=== PATIENT | male | born 1945 | race Caucasian/White ===

== ENCOUNTER 2023-02-03 14:59 | Inpatient (IN) | payer MEDICARE, SELFPAY ==
--- NOTE | 2023-02-03 | FLU_PTH ---
PATIENT: WINNIE WARREN LOC: [facility] U#:[id number] AGE/SX: 77/M ROOM: [facility] RE02/03/[address]: Dr. Juice Berger MD : [id number] BED: 1 DIS: 02/06/2023 SPEC #: [id number] RECD: 02/03/23 16:00 STATUS: MARGARET REJuan Diego #: [id number] TEE: 02/03/23 00:[address]: Du Madrigal DEPT: CYTOLOGY RECD BY: Foreign Briscoe ENTERED: 02/04/23 09:23 SP TYPE: Fluid OTHR DR: MD Dr. Kyrie Underwood MD Dr. Robert Leininger, MD Tissues: Cerebrospinal Fluid Procedures: Special Stain Group II Surgery Specimen Level IV Cytospin Fluid HEADER OPERATION: Not noted PRE-OP DIAGNOSIS: Neurosyphilis TISSUE SUBMITTED: Cerebrospinal fluid for cytology DIAGNOSIS CYTOLOGY Cerebrospinal fluid for cytology (cytospin): Negative for malignant cells. See comment. SJ:steffi 02/04/2023 COMMENT Lymphocytes and monocytes are noted. Clinical correlation and appropriate follow up are necessary. CYTOLOGY STUDY Slides are reviewed. CYTOLOGY GROSS Received is 1 ml of clear colorless fluid labeled with the patient's name and and designated per the requisition as CSF. Submitted for cytology preparation including cell block. / steffi 02/04/2023 TC:5 CPT: 73165, 16852
[2023-02-03 15:01] VITALS: BP 121/77; PULSE 123; RESP 18; TEMP 36.6; O2SAT 95; BMI 22.6
--- NOTE | 2023-02-03 16:05 | EX.ED.DYSGE1 ---
HPI History of Present Illness Chief Complaint: General Illness Informant: patient Narrative Narrative: Patient presents secondary to concern for neurosyphilis. Patient had recently had some urinary symptoms that started about 4 5 months ago. He was sent to urologist and was given treatment for UTI as well as BPH. Patient states shortly after this he developed some vision problems with his right eye. He was seen by his local spring repairer helper hand who then sent him to a specialist in [place]. Eye exam there did not reveal any specific findings, however work-up continued with infectious disease and patient was found to have an elevated syphilis titer. Patient was sent to the ER today by Dr. Tang for a lumbar puncture. [facility] Medical History (Updated 02/03/23 @ 18:[address] Cara Krishnamurthy MD) BPH (benign prostatic hyperplasia) Allergy/AdvReac Type Severity Reaction Status Date / Time No Known Allergies Allergy Verified 02/03/23 15:01 Social History Smoking Status: Never smoker ROS ROS ED Constitutional Constitutional ED: Denies chills or fever(s) Eyes Eyes: Reports change in vision right ENT ENT ED: Denies rhinorrhea or sore throat Cardiovascular Cardiovascular: Denies chest pain or palpitations Respiratory/Chest Respiratory/Chest: Denies cough or dyspnea Gastrointestinal Gastrointestinal: Denies abdominal pain, nausea or vomiting Genitourinary Genitourinary ED: Denies difficulty urinating or dysuria Musculoskeletal Musculoskeletal: Denies back pain or extremity pain Integumentary Denies Abrasions or rash Neurologic Neurologic: Denies headache(s) or weakness Psychiatric Psychiatric: Denies anxiety or depression Allergic/Immunologic Allergic/Immunologic ED: Denies lip swelling or urticaria EXAM Physical Exam Const Vital Signs: 02/03/23 15:01 02/03/23 17:00 Temperature 98 F Temperature Source Temporal Pulse Rate 123 H Respiratory Rate 18 16 Blood Pressure 121/77 H Blood Pressure Mean 91 Pulse Ox 95 Oxygen Delivery Method Room Air Positive well nourished and well developed General Appearance ED: well developed HEENT Reports normocephalic and head/scalp atraumatic Eyes EOMs intact bilaterally Neck supple Chest Wall inspection of chest normal and palpation of chest normal Resp normal respiratory effort and clear to auscultation bilaterally Cardio regular rate and regular rhythm GI normal to inspection, nondistended, normoactive bowel sounds Palpation: soft Extremity normal to inspection Neuro oriented x3 and no sensory deficits noted Sensorium / Orientation: alert Motor Exam: strength 5/5 throughout Psych mental status grossly normal Skin Skin Narrative: Flat erythematous patchy rash noted over the trunk as well as upper extremities. MDM MDM MDM Narrative Medical decision making narrative: Labwork obtained to evaluate for leukocytosis, anemia, and electrolyte derangement. HIV test also ordered per Dr. Tang's request along with syphilis antibody testing. CFS orders placed. Lab Data Attestation: I reviewed the patient's lab results. Labs: Laboratory Results - last 24 hr 02/03/23 02/03/23 02/03/23 16:40 16:40 16:40 WBC 4.6 RBC 3.43 L Hgb 9.1 L Hct 28.8 L MCV 84.0 MCH 26.5 L MCHC 31.6 L RDW Std Deviation 48.6 H RDW Coeff of Toya 15.9 H Plt Count 227 MPV 8.6 Immature Gran % (Auto) 0.400 Neut % (Auto) 54.1 Lymph % (Auto) 31.5 [place] % (Auto) 9.3 Eos % (Auto) 4.3 Baso % (Auto) 0.4 Absolute Neuts (auto) 2.5 Absolute Lymphs (auto) 1.46 Nucleated RBC % 0 PT 13.9 INR 1.1 APTT 28.6 Sodium Potassium Chloride Carbon Dioxide Anion Gap BUN Creatinine Estim Creat Clear Calc Est GFR (MDRD) Af Amer Est GFR (MDRD) Non-Af BUN/Creatinine Ratio Glucose Calcium Fld Polynuclear WBCs # Fld Polynuclear WBCs % Fluid Mononuclear WBCs Fld Mononuclear WBCs % CSF Appearance CSF Color CSF WBC CSF RBC CSF Cell Count Tube # CSF Total Cell Counted CSF Neutrophils CSF Lymphocytes CSF Monocytes CSF Comment CSF Glucose CSF Total Protein HIV 1&2 Antibody Non-Reactive 02/03/23 02/03/23 02/03/23 16:40 16:58 16:58 WBC RBC Hgb Hct MCV MCH MCHC RDW Std Deviation RDW Coeff of Toya Plt Count MPV Immature Gran % (Auto) Neut % (Auto) Lymph % (Auto) [place] % (Auto) Eos % (Auto) Baso % (Auto) Absolute Neuts (auto) Absolute Lymphs (auto) Nucleated RBC % PT INR APTT Sodium 136 Cancelled Potassium 4.4 Cancelled Chloride 104 Cancelled Carbon Dioxide 26.0 Cancelled Anion Gap 6 Cancelled BUN 15 Cancelled Creatinine 0.67 L Cancelled Estim Creat Clear Calc 58.04 Est GFR (MDRD) Af Amer 147 Cancelled Est GFR (MDRD) Non-Af 121 Cancelled BUN/Creatinine Ratio 22.3 H Cancelled Glucose 91 Cancelled Calcium 8.7 Cancelled Fld Polynuclear WBCs # 0.002 Fld Polynuclear WBCs % 6.7 Fluid Mononuclear WBCs 0.028 Fld Mononuclear WBCs % 93.3 CSF Appearance CLEAR CSF Color COLORLESS CSF WBC 0.030 H CSF RBC 0 CSF Cell Count Tube # 4 CSF Total Cell Counted 0.031 CSF Neutrophils 13 H CSF Lymphocytes 77 CSF Monocytes 10 L CSF Comment May follow CSF Glucose 50 CSF Total Protein 74.0 H HIV 1&2 Antibody Treatment and Re-Evaluation :: Procedure note: Patient consented for lumbar puncture at bedside. Total of 5 cc 1% lidocaine are infused over to lower lumbar sites. Spinal needle placed without difficulty with return of clear CSF. Fluid collected in 4 tubes and sent to lab for testing. Laboratory evaluation reveals a normal white count at 4.6 with a hemoglobin of 9.1. Do not have prior values to compare to. Coags are unremarkable. HIV antibody testing is nonreactive. Chemistry studies are unremarkable. CFS testing reports 30 white cells with 13% neutrophils. Protein is elevated at 74 and glucose is 50. In light of this patient is ordered IV penicillin G and will be admitted to hospital while awaiting further viral studies. I will speak with the hospitalist. Discharge Plan Triage Chief Complaint: General Illness ED Provider: Cara Krishnamurthy Dx/Rx/DC Orders Clinical Impression: Vision changes, Abnormal cerebrospinal fluid Primary Care Provider: Lina Cantrell Referrals: Lina Cantrell MD [Primary Care Provider] - Disposition Disposition: Acute Care Hospital [facility]
[2023-02-03 17:00] VITALS: RESP 16
[2023-02-03 17:04] LABS: Absolute Lymphocyte Count 1.46 X10^3/uL (0.83-4.51); Absolute Neutrophil Count 2.5 X10^3/uL (2.0-7.7); Basophil# 0.02 X10^3/uL; Basophil% 0.4 % (0-1); Eosinophils% 4.3 % (0-5); Hematocrit 28.8 % (40-54); Hemoglobin 9.1 g/dL (13.0-16.5); Lymphocyte # 1.46 X10^3/ul (0.83-4.51); Lymphocyte % 31.5 % (19-41); Mean Corp Hgb Conc 31.6 g/dL (32-36); Mean Corpuscular Hgb 26.5 pg (27.0-32.0); Mean Platelet Vol. 8.6 fl (6.2-12.0); Monocyte# 0.43 X10^3/uL; Monocyte% 9.3 % (0-10); NRBC Flagged by Analyzer 0 % (0-5); Neutrophil % 54.1 % (47-70); Platelet Count 227 K/mm3 (150-450); RBC Distribution Width CV 15.9 % (11.6-14.6); RBC Distribution Width SD 48.6 fl (35.1-43.9); Red Blood Count 3.43 M/mm3 (4.6-6.2); White Blood Count 4.6 K/mm3 (4.4-11.0)
[2023-02-03] MEDS: 0.9% Normal Saline 1,000 ML 999 ML IV (17:09)
[2023-02-03 17:10] LABS: Cytology, Body Fluid / CSF SEE PATHOLOGY REPORT
[2023-02-03 17:19] LABS: International Normalized Ratio 1.1; Prothrombin Time (Protime)PT. 13.9 SECONDS (11.7-14.9)
[2023-02-03 17:20] LABS: Body Fluid Mononuclear WBC # 0.028 10^3/uL; Body Fluid Mononuclear WBC % 93.3 %; Body Fluid Polynuclear WBC # 0.002 10^3/uL; Body Fluid Polynuclear WBC % 6.7 %; Total Cell Count CSF 0.031 10^3/uL
[2023-02-03 17:20] LABS: Partial Thromboplast Time 28.6 Seconds (24.1-36.2)
[2023-02-03 17:40] LABS: Anion Gap 6 (5-15); BUN 15 mg/dL (7-18); BUN/Creat Ratio 22.3 RATIO (10-20); Calcium,Total 8.7 mg/dL (8.5-10.1); Chloride 104 mmol/L (98-107); Creatinine, Serum 0.67 mg/dL (0.70-1.30); EST Glomerular Filtration Rate 121 mL/min (>60); Est Glom Filt Rate - Afr Amer 147 mL/min (>60); Estimated Creatinine Clearance 58.04 ml/min; Glucose 91 mg/dL (74-106); Potassium 4.4 mmol/L (3.5-5.1); Sodium Level 136 mmol/L (136-145)
[2023-02-03 17:51] LABS: Appearance CSF (character) CLEAR (Clear); Auto B Fluid Analyzer BKGD Ct COUNTS W/IN LIMITS (W/IN LIMITS); CSF Color COLORLESS (Colorless); Tested Tube # 4
[2023-02-03 17:52] LABS: RBC Count, Spinal Fluid 0 /mm-3 (None seen)
[2023-02-03 18:05] LABS: HIV - WCH Non-Reactive (Nonreactive)
[2023-02-03 18:17] LABS: Glucose Spinal Fluid 50 mg/dL (40-75)
[2023-02-03 18:24] LABS: Body Fluid QC Type(s) BF1Q,BF2Q; Lymphocytes,CSF 77 % (40 - 80); Monocytes,CSF 10 % (15 - 45); Neutrophils,CSF 13 % (0 - 6)
[2023-02-03 19:12] VITALS: BP 111/69; PULSE 105; RESP 14; TEMP 37.2; O2SAT 95
[2023-02-03 21:00] VITALS: BP 129/80; RESP 18; O2SAT 94
[2023-02-03 21:28] VITALS: BMI 22.1
--- NOTE | 2023-02-03 21:34 | HP.PCM.HOS_ITS ---
HPI - General General Date of Admission: 02/03/23 Date of Service: 02/03/23 Chief Complaint: eval neurosyphilis. HPI Narrative WINNIE WARREN, is a 77 M who presents per advice of ID for eval via LP and possible tx of neurosyphilis. Patient states shortly after this he developed some vision problems with his right eye.? He was seen by his local hot top liner who then sent him to a specialist in [place].? Eye exam there did not reveal retinal problem. History of cataract surgery bilateral in 2014. Patient saw infectious disease and patient was found to have an elevated syphilis titer & was referred here. Has poor vision in right eye. Has a rash over trunk and abdomen for several weeks.Does not complain of itching. Was also seen by urology for ongoing urinary frequency at night, started on Flomax. [facility] Medical History (Updated 02/03/23 @ 21:[address] Kyrie Rico MD) BPH (benign prostatic hyperplasia) Home Medications prednisolone acetate 1 % eye drops,suspension 1 drp RIGHT EYE 4X/DAY 02/03/23 [History Last Taken 02/03/23] tamsulosin 0.4 mg capsule 0.4 mg PO DAILY PROSTATE 02/03/23 [History Last Taken 02/03/23] Allergy/AdvReac Type Severity Reaction Status Date / Time No Known Allergies Allergy Verified 02/03/23 15:01 Social History Smoking Status: Never smoker Vital Signs Vital Signs Vital Signs: 02/03/23 15:01 02/03/23 17:00 02/03/23 19:12 Temperature 98 F 99 F Temperature Source Temporal Temporal Pulse Rate 123 H 105 H Respiratory Rate 18 16 14 Blood Pressure 121/77 H 111/69 Blood Pressure Mean 91 83 Pulse Ox 95 95 Oxygen Delivery Method Room Air Room Air 02/03/23 21:00 Temperature Temperature Source Pulse Rate Respiratory Rate 18 Blood Pressure 129/80 H Blood Pressure Mean 96 Pulse Ox 94 Oxygen Delivery Method Weight Weight: 148 lb 9.465 oz Body Mass Index (BMI) 22.6 Physical Exam Const alert, average body habitus, healthy appearing and well nourished HEENT normocephalic and head/scalp atraumatic Eyes EOMs intact bilaterally Eyes Narrative: The right pupil is about 5 mm and dilated and does not respond to light. The le ft pupil has nl response. Neck no lymphadenopathy Resp normal respiratory effort and no retractions Cardio regular rate and regular rhythm GI normal to inspection, nondistended, normoactive bowel sounds Extremity normal to inspection Skin Skin Narrative: the patient has a macular rash over torso and over abdomen. no excoriations. faint rash also on left arm. Neuro no focal motor deficits Sensorium / Orientation: awake and alert Psych affect normal Results Medical Records Data Attestation: I reviewed the patient's medical records Lab / Micro Data Attestation: I reviewed the patient's lab results. Result Diagrams: 02/03/23 16:40 02/03/23 16:40 Labs: Laboratory Results - last 24 hr 02/03/23 16:40: WBC 4.6, RBC 3.43 L, Hgb 9.1 L, Hct 28.8 L, MCV 84.0, MCH 26.5 L , MCHC 31.6 L, RDW Std Deviation 48.6 H, RDW Coeff of Toya 15.9 H, Plt Count 227, MPV 8.6, Immature Gran % (Auto) 0.400, Neut % (Auto) 54.1, Lymph % (Auto) 31.5, Fleming % (Auto) 9.3, Eos % (Auto) 4.3, Baso % (Auto) 0.4, Absolute Neuts (auto) 2.5, Absolute Lymphs (auto) 1.46, Nucleated RBC % 0 02/03/23 16:40: PT 13.9, INR 1.1, APTT 28.6 02/03/23 16:40: HIV 1&2 Antibody Non-Reactive 02/03/23 16:40: Sodium 136, Potassium 4.4, Chloride 104, Carbon Dioxide 26.0, Anion Gap 6, BUN 15, Creatinine 0.67 L, Estim Creat Clear Calc 58.04, Est GFR (MDRD) Af Amer 147, Est GFR (MDRD) Non-Af 121, BUN/Creatinine Ratio 22.3 H, Glucose 91, Calcium 8.7 02/03/23 16:58: Sodium Cancelled, Potassium Cancelled, Chloride Cancelled, Carbon Dioxide Cancelled, Anion Gap Cancelled, BUN Cancelled, Creatinine Ca ncelled, Est GFR (MDRD) Af Amer Cancelled, Est GFR (MDRD) Non-Af Cancelled, BUN/Creatinine Ratio Cancelled, Glucose Cancelled, Calcium Cancelled, CSF Glucose 50, CSF Total Protein 74.0 H 02/03/23 16:58: Fld Polynuclear WBCs # 0.002, Fld Polynuclear WBCs % 6.7, Fluid Mononuclear WBCs 0.028, Fld Mononuclear WBCs % 93.3, CSF Appearance CLEAR, CSF Color COLORLESS, CSF WBC 0.030 H, CSF RBC 0, CSF Cell Count Tube # 4, CSF Total Cell Counted 0.031, CSF Neutrophils 13 H, CSF Lymphocytes 77, CSF Monocytes 10 L , CSF Comment May follow Micro: Microbiology 02/03/23 16:58 Csf, Spinal Fluid Gram Stain - Preliminary Assessment & Plan Assessment/Plan (1) Abnormal cerebrospinal fluid: (2) 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 - LP with WBC 30, elevated protein. Treatment started in ED. -Continue Penicillin G 4,000,000 units q 4 hrs and ID consulted. Given good functional status, may be candidate for home abx therapy. Will consult SW. -HIV negative -HSV LP studies pending. -Right eye changes are chronic, may not be reversible. -Monitor mental status. He is clearly mentating at this time. -Tylenol PRN Normocytic anemia - Hgb 9.1 noted, MCV 84. - Labs deferred, no acute indication for daily labs at this point. Continue Flomax for presumed BPH Rash - May be secondary to above. The patient is full code. Charges/Coding Visit Charges Inpatient E&M: 49871 Init Hosp L3
[2023-02-03 21:58] VITALS: BP 141/82; PULSE 108; RESP 18; TEMP 37.1; O2SAT 98
[2023-02-03] MEDS: Acetaminophen 325 MG Tablet 650 MG PO (22:50)
[2023-02-03] MEDS: 0.9% Saline Lock 10 ML Syringe IV (22:50)
[2023-02-03] MEDS: prednisoLONE eye drops (5 mL) 1 DROP OPTH.BTL 1 DRP RIGHT EYE (22:51)
[2023-02-04] VITALS (7 sets, daily range): BP systolic 91–105; BP diastolic 49–69; PULSE 92–110; RESP 16–19; TEMP 36.6–38.2; O2SAT 95–98
--- NOTE | 2023-02-04 06:30 | EKG12_ITS ---
Test Reason : AM EKG Blood Pressure : / mmHG Vent. Rate : 100 BPM Atrial Rate : 100 BPM P-R Int : 146 ms QRS Dur : 076 ms QT Int : 328 ms P-R-T Axes : 057 021 039 degrees QTc Int : 423 ms Normal sinus rhythm Normal ECG No previous ECGs available Confirmed by GIUSEPPE ZEPEDA, DORITA ([id number]), slot editor MARGRET VEGA ([id number]) on 02/08/2023 11:14:36 AM Referred By: Confirmed By:DORITA CHIN MD
--- NOTE | 2023-02-04 07:46 | PN.HOSP_ITS ---
Reason for Visit Reason for Visit: Diagnoses Neurosyphilis, unspecified (02/03/23) Unspecified visual disturbance (02/03/23) Obstructive and reflux uropathy, unspecified (02/03/23) Unspecified abnormal finding in cerebrospinal fluid (02/03/23) Subjective Subjective No new complaints. Objective Data Objective Data Vital Signs: Vital Signs Temp Pulse Resp BP Pulse Ox O2 Del Method 36.7 C 99 18 95/59 L 95 Room Air 02/04/23 06:07 02/04/23 06:07 02/04/23 06:07 02/04/23 06:07 02/04/23 06:07 02/04/23 06:07 Oxygen Delivery Method Room Air Weight: 66 kg Body Mass Index (BMI) 22.1 Intake & Output: Intake and Output for Last 24 Hours 02/02/23 02/03/23 02/04/23 23:59 23:59 23:59 Intake Total 1209 / 1209 208 / 208 Balance 1209 / 1209 208 / 208 Lab / Micro Data Result Diagrams: 02/03/23 16:40 02/03/23 16:40 Labs: Laboratory Results - last 24 hr 02/03/23 16:40: WBC 4.6, RBC 3.43 L, Hgb 9.1 L, Hct 28.8 L, MCV 84.0, MCH 26.5 L , MCHC 31.6 L, RDW Std Deviation 48.6 H, RDW Coeff of Toya 15.9 H, Plt Count 227, MPV 8.6, Immature Gran % (Auto) 0.400, Neut % (Auto) 54.1, Lymph % (Auto) 31.5, [place] % (Auto) 9.3, Eos % (Auto) 4.3, Baso % (Auto) 0.4, Absolute Neuts (auto) 2.5, Absolute Lymphs (auto) 1.46, Nucleated RBC % 0 02/03/23 16:40: PT 13.9, INR 1.1, APTT 28.6 02/03/23 16:40: HIV 1&2 Antibody Non-Reactive 02/03/23 16:40: Sodium 136, Potassium 4.4, Chloride 104, Carbon Dioxide 26.0, Anion Gap 6, BUN 15, Creatinine 0.67 L, Estim Creat Clear Calc 58.04, Est GFR (MDRD) Af Amer 147, Est GFR (MDRD) Non-Af 121, BUN/Creatinine Ratio 22.3 H, Glucose 91, Calcium 8.7 02/03/23 16:58: Sodium Cancelled, Potassium Cancelled, Chloride Cancelled, Carbo n Dioxide Cancelled, Anion Gap Cancelled, BUN Cancelled, Creatinine Cancelled, Est GFR (MDRD) Af Amer Cancelled, Est GFR (MDRD) Non-Af Cancelled, BUN/Creatinine Ratio Cancelled, Glucose Cancelled, Calcium Cancelled, CSF Glucose 50, CSF Total Protein 74.0 H 02/03/23 16:58: Fld Polynuclear WBCs # 0.002, Fld Polynuclear WBCs % 6.7, Fluid Mononuclear WBCs 0.028, Fld Mononuclear WBCs % 93.3, CSF Appearance CLEAR, CSF Color COLORLESS, CSF WBC 0.030 H, CSF RBC 0, CSF Cell Count Tube # 4, CSF Total Cell Counted 0.031, CSF Neutrophils 13 H, CSF Lymphocytes 77, CSF Monocytes 10 L , CSF Comment May follow Micro: Microbiology 02/03/23 16:58 Csf, Spinal Fluid Gram Stain - Preliminary Physical Exam Const alert and no apparent distress HEENT head/scalp atraumatic Neuro oriented x3 and moves all extremities Sensorium / Orientation: awake and alert Psych affect normal Assessment & Plan Assessment/Plan (1) 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 Vision loss over the past month. DW Dr. Tang. Continue IV Pen G for 2 weeks No evidence of tabes dorsalis Suspected Data: * CSF: * WBC 0.03, Neutrophins 13, Protein 74 * VDRL pending * VZV DNA pending * HSV I and II pending * Treponema pallidum Ab pending * Head CT negative * check HIV Abx: Penicillin G No evidence of Jarisch-Herxheimer rxn (2) Vision changes: PLAN: 2/2 ocular syphilis Follow up ophthalmology apparently no retinal findings check head CT. Cannot rule out need for MRI (3) Rash: PLAN: Resolved May have been secondary to above. No peripheral eosinphilia PLAN: Plan Chronic * Normocytic anemia- Hgb 9.1 noted, MCV 84. - Labs deferred, no acute indication for daily labs at this point. * Continue Flomax for presumed BPH The patient is full code. Charges/Coding Visit Charges Inpatient E&M: 69271 Subs Hosp L2
[2023-02-04] MEDS: prednisoLONE eye drops (5 mL) 1 DROP OPTH.BTL 1 DRP RIGHT EYE ×4 (09:20→22:21)
[2023-02-04] MEDS: Tamsulosin HCl 0.4 MG Capsule PO (09:20)
--- NOTE | 2023-02-04 10:37 | CT_ITS ---
STUDY: CT BRAIN WITHOUT CONTRAST REASON FOR EXAM: Male, 77 years old. Vision loss RADIATION DOSAGE (If Supplied By Facility): CTDIvol = ( 44.99 ) mGy, DLP = ( 779.24 ) mGycm TECHNIQUE: Transaxial CT imaging of the brain was performed without administration of intravenous contrast material. Individualized dose optimization techniques were used for this CT. COMPARISON: No relevant priors. FINDINGS: Normal soft tissue structures. Normal calvarium. There is mild cerebral atrophy with widening of the extra-axial spaces and ventricular dilatation. There are areas of decreased attenuation within the white matter tracts of the supratentorial brain, consistent with microvascular disease changes. Normal basal ganglia and thalami. Normal brainstem. Normal cerebellum. There is no intracranial hemorrhage. There are no findings of an acute ischemic infarction. Partial opacification of the ethmoid sinuses bilaterally. CT/Brain/Head without Contrast IMPRESSION: Chronic involutional changes of the brain. Partial opacification of the ethmoid sinuses bilaterally. Electronically Signed: Jayden Nolasco MD at 11:03 EDT ,
--- NOTE | 2023-02-04 11:20 | CON.PCM.ID_ITS ---
Assessment & Plan Assessment/Plan (1) Ocular syphilis: PLAN: Presumed diagnosis. Outpt RPR 1:4096, R sided retinitis/uveitis and severe vision loss over past month. CSF VDRL pending. On IV pcn. Will order midline, planned 2 week course IV PCN continuous infusion, 24 million units daily with weekly labs and outpt prednisone taper. ID followup in 2 weeks. Will follow, thank you, vania Madrigal HPI Consult Data Date of Consult: 02/04/23 HPI Narrative Reason for Consultation: ocular syphilis HPI Narrative: WINNIE WARREN, is a 77 M who presented 02/03 with blindness in R eye, progressive over past month. Saw ophtho in [place], saw retinitis/uveitis, labs sent. RPR was 1:4096. Referred to ID, seen in office yesterday and sent to ED. No known h/o syphilis in the past, not sexually active for at least several years. Does have sore on foreskin, thought to be trauma related, follows with urology, circumcision was planned. No fever or chills. No issues with L eye. In ED, LP done, admitted on IV PCN. Vision is actually slightly there this AM on R side. Nursing noted some faint nonpruritic rash on trunk. Full ROS performed and neg except as noted above. [facility] Medical History BPH (benign prostatic hyperplasia) Home Medications prednisolone acetate 1 % eye drops,suspension 1 drp RIGHT EYE 4X/DAY 02/03/23 [History Last Taken 02/03/23] tamsulosin 0.4 mg capsule 0.4 mg PO DAILY PROSTATE 02/03/23 [History Last Taken 02/03/23] penicillin G pot 3 million unit/50 mL-dextrose intravenous piggyback 24 mmu IV Q24H 14 days #5,600 mL 02/04/23 [Rx Last Taken Unknown] prednisone 10 mg tablet 10 mg PO DAILY 12 days #12 tabs 02/04/23 [Rx Last Taken Unknown] Allergy/AdvReac Type Severity Reaction Status Date / Time No Known Allergies Allergy Verified 02/03/23 15:01 Social History Smoking Status: Never smoker Physical Exam Const alert, oriented x3 and no apparent distress General Appearance: cooperative HEENT normocephalic and head/scalp atraumatic Eyes Eyes Narrative: R pupil does not react to light Neck supple and No nodes Resp normal air movement and clear to auscultation bilaterally Cardio regular rate and regular rhythm GI soft to palpation, non-tender and non-distended Extremity General Extremity: Negative for edema Skin Skin Narrative: penile lesion. Faint rash on trunk. None on palms. Neuro CN's II-XII intact bilaterally Lab / Micro Data Attestation: I reviewed the patient's lab results. Result Diagrams: 02/03/23 16:40 02/03/23 16:40 Labs: Laboratory Results - last 24 hr 02/03/23 16:40: WBC 4.6, RBC 3.43 L, Hgb 9.1 L, Hct 28.8 L, MCV 84.0, MCH 26.5 L , MCHC 31.6 L, RDW Std Deviation 48.6 H, RDW Coeff of Toya 15.9 H, Plt Count 227, MPV 8.6, Immature Gran % (Auto) 0.400, Neut % (Auto) 54.1, Lymph % (Auto) 31.5, [place] % (Auto) 9.3, Eos % (Auto) 4.3, Baso % (Auto) 0.4, Absolute Neuts (auto) 2.5, Absolute Lymphs (auto) 1.46, Nucleated RBC % 0 02/03/23 16:40: PT 13.9, INR 1.1, APTT 28.6 02/03/23 16:40: HIV 1&2 Antibody Non-Reactive 02/03/23 16:40: Sodium 136, Potassium 4.4, Chloride 104, Carbon Dioxide 26.0, Anion Gap 6, BUN 15, Creatinine 0.67 L, Estim Creat Clear Calc 58.04, Est GFR (MDRD) Af Amer 147, Est GFR (MDRD) Non-Af 121, BUN/Creatinine Ratio 22.3 H, Glucose 91, Calcium 8.7 02/03/23 16:58: Sodium Cancelled, Potassium Cancelled, Chloride Cancelled, Carbon Dioxide Cancelled, Anion Gap Cancelled, BUN Cancelled, Creatinine Cancelled, Est GFR (MDRD) Af Amer Cancelled, Est GFR (MDRD) Non-Af Cancelled, BUN/Creatinine Ratio Cancelled, Glucose Cancelled, Calcium Cancelled, CSF Glucose 50, CSF Total Protein 74.0 H 02/03/23 16:58: Fld Polynuclear WBCs # 0.002, Fld Polynuclear WBCs % 6.7, Fluid Mononuclear WBCs 0.028, Fld Mononuclear WBCs % 93.3, CSF Appearance CLEAR, CSF Color COLORLESS, CSF WBC 0.030 H, CSF RBC 0, CSF Cell Count Tube # 4, CSF Total Cell Counted 0.031, CSF Neutrophils 13 H, CSF Lymphocytes 77, CSF Monocytes 10 L , CSF Comment May follow Micro: Microbiology 02/03/23 16:58 Csf, Spinal Fluid Gram Stain - Preliminary Radiology Impression Brain CT 02/04/23 10:37 IMPRESSION: Chronic involutional changes of the brain. Partial opacification of the ethmoid sinuses bilaterally. Electronically Signed: Jayden Nolasco MD at 11:03 EDT ,
--- NOTE | 2023-02-04 11:50 | CASEMGMT ---
RN CM Face to Face with patient for initial transition planning/care coordination assessment. RN CM introduced self and role at [facility]. Patient lying in bed, alert and oriented. Patient willing to participate in assessment and is able to answer all questions appropriately. Care providers, pharmacy, and demographics verified. Patient wishes to discharge home and will need HHC for IV ATBs. Patient states he has no preferences for HHC as long as they are in network. Patient states he has no further needs or concerns at this time. CM to follow for discharge planning needs that may arise. PCP: Óscar Specialists: [facility] Pharmacy: [facility] Insurance: [employer]ov[employer] Prescription Benefit: yes Living Will/HPOA: none LNOK: sister Living Arrangements: Patient lives alone in a single story home with no steps to enter. Patient states she is independent at home. Transportation: self, sisters DME/HHC: Patient had raised toilet, cane, walker at home. No previous HHC or SNF. Disposition Plan: Patient to discharge home with HHC and follow-up plans in place. Terri DALY, RN, CM
[2023-02-04 13:31] LABS: Pathologist Review Reviewed
--- NOTE | 2023-02-04 14:57 | CHAPLAIN ---
Type of Pastoral Visit _x__ Initial Visit ___ Follow-up Visit ___ On-call Visit ___ General Patient Visit ___ Spiritual Assessment ___ Family Conference ___ Bereavement ___ Rapid Response ___ Code Blue ___ Other (describe below) Pastoral Care Referral From _x__ Patient ___ Family ___ Nurse ___ Physician ___ Senior Market Intelligence Consultant ___ Communications Electrician Supervisor ___ Other (describe below) Sacrament/Intervention _x__ Active listening ___ Anointing ___ Presybeterian ___ Bereavement ___ Communion ___ Pippa exploration ___ _x__ Life review _x__ Prayer ___ Reconciliation ___ Sacrament of Sick ___ Supportive presence ___ Wedding ___ Other (describe below) Pastoral Comments patient talks about his reason for admisison, his career, and some review; pt states he has had great care and is hopeful that this quick response will be beneficial for him; pt welcomes presence and prayer
--- NOTE | 2023-02-04 15:10 | CASEMGMT ---
RADHA CM in to discuss infusion companies at discharge for IV ATBs. RADHA JANSEN reviewed agencies with patient and prefers [facility]. Referral sent via [facility]. CM will continue to follow this patient and plan for a safe discharge.
[2023-02-04 16:57] LABS: HIV - WCH Non-Reactive (Nonreactive)
[2023-02-04] MEDS: 0.9% Saline Lock 10 ML Syringe IV (20:45)
[2023-02-04] MEDS: Heparin Injection (Vial) 5,000 UNIT/ML VIAL 5000 UNIT SC (22:21)
[2023-02-05 03:10] VITALS: BP 96/50; PULSE 88; RESP 16; TEMP 37.2; O2SAT 97
[2023-02-05 05:52] LABS: Absolute Lymphocyte Count 1.63 X10^3/uL (0.83-4.51); Absolute Neutrophil Count 1.7 X10^3/uL (2.0-7.7); Basophil# 0.01 X10^3/uL; Basophil% 0.2 % (0-1); Eosinophil# 0.27 X10^3/uL; Eosinophils% 6.7 % (0-5); Hematocrit 27.1 % (40-54); Hemoglobin 8.8 g/dL (13.0-16.5); Lymphocyte # 1.63 X10^3/ul (0.83-4.51); Lymphocyte % 40.3 % (19-41); Mean Corp Hgb Conc 32.5 g/dL (32-36); Mean Corpuscular Hgb 26.7 pg (27.0-32.0); Mean Corpuscular Volume 82.1 fL (80-94); Mean Platelet Vol. 8.1 fl (6.2-12.0); Monocyte# 0.44 X10^3/uL; Monocyte% 10.9 % (0-10); NRBC Flagged by Analyzer 0 % (0-5); Neutrophil # 1.67 X10^3/uL (2.7-7.7); Neutrophil % 41.4 % (47-70); Platelet Count 170 K/mm3 (150-450); RBC Distribution Width CV 15.8 % (11.6-14.6); RBC Distribution Width SD 47.4 fl (35.1-43.9)
[2023-02-05 06:22] LABS: Anion Gap 5 (5-15); BUN 10 mg/dL (7-18); BUN/Creat Ratio 16.9 RATIO (10-20); Calcium,Total 8.4 mg/dL (8.5-10.1); Chloride 108 mmol/L (98-107); Creatinine, Serum 0.59 mg/dL (0.70-1.30); EST Glomerular Filtration Rate 140 mL/min (>60); Est Glom Filt Rate - Afr Amer 170 mL/min (>60); Estimated Creatinine Clearance 56.83 ml/min; Glucose 104 mg/dL (74-106); Potassium 4.2 mmol/L (3.5-5.1); Sodium Level 135 mmol/L (136-145)
--- NOTE | 2023-02-05 08:26 | PN.HOSP_ITS ---
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 Slightly improved from before. But still diminished overall. States that the rash he had was temporary and began before he was in the hospital. Objective Data Objective Data Vital Signs: Vital Signs Temp Pulse Resp BP Pulse Ox O2 Del Method 37.2 C 88 16 96/50 L 97 Room Air 02/05/23 03:10 02/05/23 03:10 02/05/23 03:10 02/05/23 03:10 02/05/23 03:10 02/05/23 04:16 Oxygen Delivery Method Room Air Weight: 66 kg Body Mass Index (BMI) 22.1 Intake & Output: Intake and Output for Last 24 Hours 02/03/23 02/04/23 02/05/23 23:59 23:59 23:59 Intake Total 1209 / 1209 1000 / 1200 632 / 632 Balance 1209 / 1209 1000 / 1200 632 / 632 Lab / Micro Data Result Diagrams: 02/05/23 05:38 02/05/23 05:38 Labs: Laboratory Results - last 24 hr 02/03/23 16:58: CSF Comment Reviewed 02/03/23 16:58: Miscellaneous Cytology SEE PATHOLOGY REPORT 02/04/23 14:50: HIV 1&2 Antibody Non-Reactive 02/05/23 05:38: WBC 4.0 L, RBC 3.30 L, Hgb 8.8 L, Hct 27.1 L, MCV 82.1, MCH 26.7 L, MCHC 32.5, RDW Std Deviation 47.4 H, RDW Coeff of Toya 15.8 H, Plt Count 170, MPV 8.1, Immature Gran % (Auto) 0.500, Neut % (Auto) 41.4 L, Lymph % (Auto) 40.3, Blair % (Auto) 10.9 H, Eos % (Auto) 6.7 H, Baso % (Auto) 0.2, Absolute Neuts (auto) 1.7 L, Absolute Lymphs (auto) 1.63, Nucleated RBC % 0 02/05/23 05:38: Sodium 135 L, Potassium 4.2, Chloride 108 H, Carbon Dioxide 22.0, Anion Gap 5, BUN 10, Creatinine 0.59 L, Estim Creat Clear Calc 56.83, Est GFR (MDRD) Af Amer 170, Est GFR (MDRD) Non-Af 140, BUN/Creatinine Ratio 16.9, Glucose 104, Calcium 8.4 L Micro: Microbiology 02/03/23 16:58 Csf, Spinal Fluid Gram Stain - Final 02/03/23 16:58 Csf, Spinal Fluid CSF Culture - Preliminary No growth in 24 hours. Final to follow. Radiography Diagnostic Testing: Radiology Impression Brain CT 02/04/23 10:37 IMPRESSION: Chronic involutional changes of the brain. Partial opacification of the ethmoid sinuses bilaterally. Electronically Signed: Jayden Nolasco MD at 11:03 EDT , Physical Exam Const alert HEENT HEENT Narrative: Fixed right pupil. Left pupil reactive. Extremity normal to inspection Skin Skin Narrative: Faint evidence of vesicular rash over his abdomen. No erythema. 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 Vision loss over the past month. PORFIRIO Tang. Continue IV Pen G for 2 weeks No evidence of tabes dorsalis Suspected Data: * CSF: * WBC 0.03, Neutrophins 13, Protein 74 * VDRL pending * VZV DNA pending * HSV I and II pending * Treponema pallidum Ab pending * Head CT negative * HIV non-reactive Abx: Penicillin G No evidence of Jarisch-Herxheimer rxn. It sounds like the patient had this rash before he started on antibiotics. (2) Vision changes: PLAN: 2/2 ocular syphilis Follow up ophthalmology apparently no retinal findings check head CT. Cannot rule out need for MRI (3) Rash: PLAN: Resolved May have been secondary to above. Eosinophils up slightly to 6.7 PLAN: Plan Chronic * Normocytic anemia- Hgb 9.1 noted, MCV 84. - Labs deferred, no acute indication for daily labs at this point. * Continue Flomax for presumed BPH The patient is full code. Disposition: Plan for the patient to be discharged on the and will have home care starting on the . Greater than 35 minutes of which greater than for present time was discussing with the patient, reviewing the treatment options and home care. Also discussing with the case management and infectious disease about his treatment options and home care options. Charges/Coding Visit Charges Inpatient E&M: 60632 Subs Hosp L2
[2023-02-05 09:00] VITALS: BP 117/75; PULSE 87; RESP 18; TEMP 36.8; O2SAT 97
[2023-02-05] MEDS: Tamsulosin HCl 0.4 MG Capsule PO (09:03)
[2023-02-05] MEDS: prednisoLONE eye drops (5 mL) 1 DROP OPTH.BTL 1 DRP RIGHT EYE ×4 (09:04→21:57)
[2023-02-05] MEDS: Heparin Injection (Vial) 5,000 UNIT/ML VIAL 5000 UNIT SC ×2 (09:04→21:55)
--- NOTE | 2023-02-05 10:11 | CASEMGMT ---
Discharge Planning referral faxed to [facility]. Dana De Souza, Discharge Planning Asst.
--- NOTE | 2023-02-05 14:03 | PCM.PN.ID ---
Physical Exam Narrative vision slightly improved, no fever, no headache Const alert and no apparent distress General Appearance: cooperative Resp normal air movement and clear to auscultation bilaterally Cardio regular rate and regular rhythm GI soft to palpation, non-tender and non-distended Extremity General Extremity: Negative for edema Skin Skin Narrative: faint rash on trunk ID ID: Route of nutrition/ use of supplements: [] Nutritional Intake: [] IV Site: [] Khan Catheter: [] Assessment & Plan Assessment/Plan (1) Ocular syphilis: PLAN: Presumed diagnosis. Outpt RPR 1:4096, R sided retinitis/uveitis and severe vision loss over past month. CSF VDRL pending. On IV pcn. Has midline, planned 2 week course IV PCN continuous infusion, 24 million units daily with weekly labs and outpt prednisone taper. ID followup in 2 weeks. If he cannot get IV PCN, 2nd line therapy would be Procaine PCN G 2.4 million units intramuscular [IM] once daily) plus probenicid 500 mg orally four times a day), both for 12 more days Will follow, vania director of casework department and Dr. Madrigal
--- NOTE | 2023-02-05 14:36 | CASEMGMT ---
Discharge Planning [facility] accepted patient for SN. Orders and requested documents faxed to [phone]. Phone number is [phone]. RN CM notified. Dana De Souza, Discharge Planning Asst.
--- NOTE | 2023-02-05 14:43 | CASEMGMT ---
Discharge Planning [facility] notified via [facility] that [facility] will manage IV. Dana De Souza, Discharge Planning Asst.
[2023-02-05 15:00] VITALS: BP 99/69; PULSE 105; RESP 18; TEMP 36.4; O2SAT 97
--- NOTE | 2023-02-05 15:00 | CASEMGMT ---
RADHA JANSEN received notification of cost for ATBs for patient from [facility], CELINE to call patient regarding financials. RADHA JANSEN notified of HHC with [facility]. RADHA JANSEN received call from Joseline at [facility] requesting address for patient. Start of care confirmed for Wednesday at 9:00. RADHA JANSEN updated ID and hospitalist, discharge planned for Wednesday follow morning ATB. RADHA JANSEN called and updated [facility]. RN INDERJIT updated patient regarding HHC and IV ATB setup, patient had no further questions or concerns at this time. Discharge plan updatend and Green sheet placed on chart.
[2023-02-05] MEDS: Calcium Carbonate 500 MG Tablet PO (19:30)
[2023-02-05 21:45] VITALS: BP 124/79; PULSE 93; RESP 18; TEMP 36.8; O2SAT 99
[2023-02-06 04:00] VITALS: BP 90/62; PULSE 99; RESP 18; TEMP 37.4; O2SAT 92
[2023-02-06 06:10] VITALS: BP 122/75; PULSE 94; RESP 18; TEMP 36.8; O2SAT 96
[2023-02-06 07:05] LABS: Absolute Lymphocyte Count 2.02 X10^3/uL (0.83-4.51); Absolute Neutrophil Count 2.1 X10^3/uL (2.0-7.7); Basophil# 0.02 X10^3/uL; Basophil% 0.4 % (0-1); Eosinophil# 0.31 X10^3/uL; Eosinophils% 6.1 % (0-5); Hematocrit 28.9 % (40-54); Hemoglobin 9.2 g/dL (13.0-16.5); Lymphocyte # 2.02 X10^3/ul (0.83-4.51); Lymphocyte % 39.8 % (19-41); Mean Corp Hgb Conc 31.8 g/dL (32-36); Mean Corpuscular Hgb 26.1 pg (27.0-32.0); Mean Corpuscular Volume 81.9 fL (80-94); Mean Platelet Vol. 8.8 fl (6.2-12.0); Monocyte# 0.59 X10^3/uL; Monocyte% 11.6 % (0-10); NRBC Flagged by Analyzer 0 % (0-5); Neutrophil % 41.5 % (47-70); Platelet Count 209 K/mm3 (150-450); RBC Distribution Width CV 15.9 % (11.6-14.6); RBC Distribution Width SD 47.5 fl (35.1-43.9); Red Blood Count 3.53 M/mm3 (4.6-6.2); White Blood Count 5.1 K/mm3 (4.4-11.0)
[2023-02-06 07:39] LABS: Anion Gap 5 (5-15); BUN 9 mg/dL (7-18); BUN/Creat Ratio 13.9 RATIO (10-20); Calcium,Total 9.1 mg/dL (8.5-10.1); Chloride 105 mmol/L (98-107); Creatinine, Serum 0.65 mg/dL (0.70-1.30); EST Glomerular Filtration Rate 127 mL/min (>60); Est Glom Filt Rate - Afr Amer 154 mL/min (>60); Estimated Creatinine Clearance 56.83 ml/min; Glucose 98 mg/dL (74-106); Potassium 4.2 mmol/L (3.5-5.1); Sodium Level 134 mmol/L (136-145)
--- NOTE | 2023-02-06 08:00 | DCINST_ITS ---
Discharge Instructions Diet Discharge Diet: No restrictions Activity Discharge Activity: Return to Normal Activity Weight Bearing Status: Weight bearing as tolerated Dressing / Incision Call your doctor if you observe: Fever of 101 or Higher, Coldness, Increased Pain, Numbness or Tingling, Change in Color, Inability to urinate, Inability to have a bowel movement, Shortness of breath, Dizziness, Fainting spells, Swelling in the ankles, Chest pain, Prolonged hiccupping, Increased palpitations (irregular heartbeat) and Calf discomfort Follow Up Care When: IN 2 WEEKS Test Results: Test results from this visit will be discussed in further detail at your follow- up appointment, if applicable. Discharge Plan Admission Admit Date/Time: 02/03/23 19:24 Primary Reason for Your Visit: NEUROSYPHILIS Attending Provider: Juice Berger Primary Care Provider: Lina Cantrell Consulting Providers: Kyrie Rico ; Hugo Tang ; Du Madrigal Discharge Orders/Prescriptions Prescriptions: New penicillin G pot in dextrose 3 million unit/50 mL piggyback 24 mmu IV Q24H 14 Days Qty: 5600 0RF Rx Instructions: 24 million units PCN G q24h given as continuous infusion weekly bmp, cbc. Fax to [phone] dx: ocular syphilis stop date 02/18/23 prednisone 10 mg tablet 10 mg PO DAILY 12 Days Qty: 12 0RF Rx Instructions: take 4 tabs daily for 3 days then 3 tabs daily for 3 days then 2 tabs daily for 3 days then 1 tab daily for 3 days Deep Sea Nasal 0.65 % Aerosol,[place] 1 spray NASAL BID PRN PRN (Reason: NASAL DRYNESS) Qty: 0 0RF Continued prednisolone acetate 1 % drops,suspension 1 drp RIGHT EYE 4X/DAY Label Comments: INSTILL 1 DROP INTO RIGHT EYE 4 TIMES DAILY tamsulosin 0.4 mg capsule 0.4 mg PO DAILY Label Comments: TAKE 1 CAPSULE BY MOUTH ONCE DAILY Referrals / Follow Up: Lina Cantrell MD [Primary Care Provider] - Hugo Tang MD [Med Staff - Active Staff] - Within 2 Weeks Disposition Disposition (needs filled in before D/C Order can be placed): Home Health Service
[2023-02-06 09:20] VITALS: BP 101/65; PULSE 109; RESP 16; TEMP 36.6; O2SAT 97
[2023-02-06] MEDS: Tamsulosin HCl 0.4 MG Capsule PO (09:24)
[2023-02-06] MEDS: predniSONE 20 MG Tablet 40 MG PO (09:24)
[2023-02-06] MEDS: Heparin Injection (Vial) 5,000 UNIT/ML VIAL 5000 UNIT SC (09:24)
[2023-02-06] MEDS: prednisoLONE eye drops (5 mL) 1 DROP OPTH.BTL 1 DRP RIGHT EYE (09:25)
--- NOTE | 2023-02-06 11:00 | CASEMGMT ---
RADHA JANSEN NOTE: Call received from Rika @ [facility]. She was made aware pt is discharging home today. She states they will deliver the atb/supplies to pt today. She is aware [facility] is tomorrow @ 9 AM. RADHA JANSEN to room. Pt aware of all of the above. He denies having further discharge planning needs or concerns. Betty ABURTON RADHA JANSEN
--- NOTE | 2023-02-06 11:23 | DS.PCM_ITS ---
Providers Date of Admission: 02/03/23 Date of Discharge: 02/06/23 Primary Care Physician: Dr. 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 (1) Neurosyphilis/ocular in adult: Patient has lost vision in the right eye over the last 1 month patient has found ocular syphilis with right-sided retinitis and uveitis patient was evaluated by ID and found to have elevated RPR 1:4096. ID was consulted and seen by Dr. Tang. Plan for IV penicillin G for continued through midline. Patient does not have Romberg sign or evidence of Tefft dorsalis. * CSF: * WBC 0.03, Neutrophins 13, Protein 74 * VDRL pending * VZV DNA pending * HSV I and II pending * Treponema pallidum Ab pending * Head CT negative * HIV non-reactiveAbx: Penicillin G No evidence of Jarisch-Herxheimer rxn.? It sounds like the patient had this rash before he started on antibiotics. (2) Vision changes: PLAN: 2/2 ocular syphilis Follow up ophthalmology apparently no retinal findings CT head shows chronic involutional changes and partial opacification of ethmoid sinuses bilaterally. (3) Rash: PLAN: Resolved May have been secondary to above. Eosinophils up slightly to 6.7 PLAN: Plan Chronic * Normocytic anemia- Hgb 9.1 noted, MCV 84. - Labs deferred, no acute indication for daily labs at this point. * Continue Flomax for presumed BPH The patient is full code. Discharge medication reconciliation done. Discharge follow-up instructions completed. Discharge process discussed with the patient and all questions were answered to patient's satisfaction. Total time spent, exact 35 minutes on discharge meds reconciliation, examination, coordination of care with nurses and ancillary staff, review of imaging and blood test and discussion with the patient on follow-up instruct ions. Medications at Discharge Home Medications prednisolone acetate 1 % eye drops,suspension 1 drp RIGHT EYE 4X/DAY 02/03/23 tamsulosin 0.4 mg capsule 0.4 mg PO DAILY PROSTATE 02/03/23 penicillin G pot 3 million unit/50 mL-dextrose intravenous piggyback 24 mmu IV Q24H 14 days #5,600 mL 02/04/23 prednisone 10 mg tablet 10 mg PO DAILY 12 days #12 tabs 02/04/23 sodium chloride 0.65 % nasal spray aerosol (Deep Sea Nasal) 1 spray NASAL BID PRN PRN NASAL DRYNESS #0 mL 02/06/23 Physical Exam Narrative Seen and examined. Patient has right vision loss over past 1 month. Denies abnormal gait, fall or loss of equilibrium. Denies loss of sensation to fine touch. General: Alert, Oriented x3, Cooperative HEENT: Left pupil is constricted but right pupil 3 mm round. Complete vision loss of right eye. Accommodation present with abduction of left eye. Normocephalic Oral: Oral mucosa moist no Gingival or Mucosal Lesions/ Ulcerations Neck: Supple, No JVD, Negative Carotid Bruits Lungs: Air entry diminished in bilateral lung bases. No crepitation/rhonchi Cardiovascular: Regular rate, Regular Rhythm, Normal S1, Normal S2, No murmurs Abdomen: Bowel Sounds Present, Soft, Non Tender, Non-Distended : No renal angle tenderness. No suprapubic tenderness. Extremities: No edema, Capillary Refill Less than 3 Seconds Skin: No rashes, No breakdown Musculoskeletal: No Tenderness to Palpation of Joints or Extremities Neurological: Cranial nerves II-XII grossly intact, DTR 2+/4 and Symmetrical, Neuro grossly intact. Romberg sign negative. Gross and fine touch intact. Psych/Mental Status: Normal Affect, Appropriate. Weight / BMI Weight Weight: 145 lb 8.081 oz Body Mass Index (BMI) 22.1 ABG / Lab / Microbiology Data Result Diagrams: 02/06/23 06:37 02/06/23 06:37 Laboratory: Laboratory Results - last 24 hr 02/06/23 06:37: WBC 5.1, RBC 3.53 L, Hgb 9.2 L, Hct 28.9 L, MCV 81.9, MCH 26.1 L , MCHC 31.8 L, RDW Std Deviation 47.5 H, RDW Coeff of Toya 15.9 H, Plt Count 209, MPV 8.8, Immature Gran % (Auto) 0.600, Neut % (Auto) 41.5 L, Lymph % (Auto) 39.8, Ralls % (Auto) 11.6 H, Eos % (Auto) 6.1 H, Baso % (Auto) 0.4, Absolute Neuts (auto) 2.1, Absolute Lymphs (auto) 2.02, Nucleated RBC % 0 02/06/23 06:37: Sodium 134 L, Potassium 4.2, Chloride 105, Carbon Dioxide 24.0, Anion Gap 5, BUN 9, Creatinine 0.65 L, Estim Creat Clear Calc 56.83, Est GFR (MDRD) Af Amer 154, Est GFR (MDRD) Non-Af 127, BUN/Creatinine Ratio 13.9, Glucose 98, Calcium 9.1 Microbiology: Microbiology 02/03/23 16:58 Csf, Spinal Fluid Gram Stain - Final 02/03/23 16:58 Csf, Spinal Fluid CSF Culture - Preliminary No growth in 24 hours. Final to follow. D/C Instructions Discharge Diet: No restrictions Weight Bearing Status: Weight bearing as tolerated Call your doctor if you observe: Fever of 101 or Higher, Coldness, Increased Pain, Numbness or Tingling, Change in Color, Inability to urinate, Inability to have a bowel movement, Shortness of breath, Dizziness, Fainting spells, Swelling in the ankles, Chest pain, Prolonged hiccupping, Increased palpitations (irregular heartbeat) and Calf discomfort When: IN 2 WEEKS Meaningful Use Info Meaningful Use Diagnoses (Choose all that apply): None applicable Discharge Plan Admission Admit Date/Time: 02/03/23 19:24 Primary Reason for Your Visit: NEUROSYPHILIS Attending Provider: Juice Berger Primary Care Provider: Lina Cantrell Consulting Providers: Kyrie Rico ; Hugo Tang ; Du Madrigal Discharge Orders/Prescriptions Prescriptions: New penicillin G pot in dextrose 3 million unit/50 mL piggyback 24 mmu IV Q24H 14 Days Qty: 5600 0RF Rx Instructions: 24 million units PCN G q24h given as continuous infusion weekly bmp, cbc. Fax to [phone] dx: ocular syphilis stop date 02/18/23 prednisone 10 mg tablet 10 mg PO DAILY 12 Days Qty: 12 0RF Rx Instructions: take 4 tabs daily for 3 days then 3 tabs daily for 3 days then 2 tabs daily for 3 days then 1 tab daily for 3 days Deep Sea Nasal 0.65 % Aerosol,[place] 1 spray NASAL BID PRN PRN (Reason: NASAL DRYNESS) Qty: 0 0RF Continued prednisolone acetate 1 % drops,suspension 1 drp RIGHT EYE 4X/DAY Label Comments: INSTILL 1 DROP INTO RIGHT EYE 4 TIMES DAILY tamsulosin 0.4 mg capsule 0.4 mg PO DAILY Label Comments: TAKE 1 CAPSULE BY MOUTH ONCE DAILY Referrals / Follow Up: Lina Cantrell MD [Primary Care Provider] - Hugo Tang MD [Med Staff - Active Staff] - Within 2 Weeks Disposition Disposition (needs filled in before D/C Order can be placed): Home Health Service Charges/Coding Visit Charges Inpatient E&M: 66829 Disch Hosp >30min
--- NOTE | 2023-02-06 12:35 | NURSING ---
I left a voicemail for [facility] to inform them that the pt is being d/c today and I faxed over the d/c instructions.
== END 2023-02-06 13:03 | disposition home health service (06) | DRG 125 ==
LOC: ED 19:24 → PCU 19:27
PROVIDERS: Admitting Provider Hospitalist; Emergency Provider Emergency Medicine; PCP Internal Medicine; Visit Provider Internal Medicine
DX: A52.71 Late syphilitic oculopathy (principal); D64.9 Anemia, unspecified; N40.0 Benign prostatic hyperplasia without lower urinary tract symptoms; R21 Rash and other nonspecific skin eruption; Z79.899 Other long term (current) drug therapy
CPT/HCPCS: 36415; 70450; 80048; 82945; 84157; 85025; 85610; 85730; 86592; 86703; 86780; 87070; 87205; 87529; 87798; 88108; 88305; 88313; 89050; 89051; 93005; 99284; J7040; A4216; J0696

== ENCOUNTER 2023-02-08 14:41 | Outpatient (CLI) | payer MEDICARE, SELFPAY ==
[2023-02-08 15:22] LABS: Absolute Lymphocyte Count 2.82 X10^3/uL (0.83-4.51); Basophil# 0.01 X10^3/uL; Basophil% 0.1 % (0-1); Eosinophil# 0.07 X10^3/uL; Eosinophils% 0.9 % (0-5); Hematocrit 29.6 % (40-54); Hemoglobin 9.2 g/dL (13.0-16.5); Lymphocyte # 2.82 X10^3/ul (0.83-4.51); Mean Corp Hgb Conc 31.1 g/dL (32-36); Mean Corpuscular Hgb 25.7 pg (27.0-32.0); Mean Corpuscular Volume 82.7 fL (80-94); Mean Platelet Vol. 8.2 fl (6.2-12.0); Monocyte# 0.73 X10^3/uL; Monocyte% 9.6 % (0-10); NRBC Flagged by Analyzer 0 % (0-5); Neutrophil # 3.96 X10^3/uL (2.7-7.7); Neutrophil % 51.9 % (47-70); Platelet Count 254 K/mm3 (150-450); RBC Distribution Width CV 16.2 % (11.6-14.6); RBC Distribution Width SD 48.5 fl (35.1-43.9); Red Blood Count 3.58 M/mm3 (4.6-6.2); White Blood Count 7.6 K/mm3 (4.4-11.0)
[2023-02-08 15:40] LABS: Anion Gap 6 (5-15); BUN 24 mg/dL (7-18); BUN/Creat Ratio 30.2 RATIO (10-20); Calcium,Total 8.7 mg/dL (8.5-10.1); Chloride 106 mmol/L (98-107); EST Glomerular Filtration Rate 100 mL/min (>60); Est Glom Filt Rate - Afr Amer 121 mL/min (>60); Glucose 110 mg/dL (74-106); Potassium 3.4 mmol/L (3.5-5.1); Sodium Level 137 mmol/L (136-145)
[2023-02-08 23:18] LABS: Xtra Tube EP Lab EXTRA TUBE
== END 2023-02-08 14:42 | disposition home or self-care (01) ==
LOC: MEDOUTP 14:42
PROVIDERS: PCP Internal Medicine; Referring Provider Internal Medicine Infectious Disease; Visit Provider Internal Medicine Infectious Disease
DX: A52.71 Late syphilitic oculopathy (principal)
CPT/HCPCS: 36592; 80048; 85025; A4216

== ENCOUNTER 2023-02-15 14:43 | Outpatient (CLI) | payer MEDICARE, SELFPAY ==
[2023-02-15] MEDS: 0.9% NaCl Midline IV Flush IV (15:06)
[2023-02-15 16:05] LABS: Anion Gap 6 (5-15); BUN 12 mg/dL (7-18); BUN/Creat Ratio 14.8 RATIO (10-20); Calcium,Total 8.8 mg/dL (8.5-10.1); Chloride 105 mmol/L (98-107); Creatinine, Serum 0.81 mg/dL (0.70-1.30); EST Glomerular Filtration Rate 97 mL/min (>60); Est Glom Filt Rate - Afr Amer 118 mL/min (>60); Glucose 122 mg/dL (74-106); Potassium 4.5 mmol/L (3.5-5.1); Sodium Level 135 mmol/L (136-145)
[2023-02-15 16:13] LABS: Absolute Lymphocyte Count 1.26 X10^3/uL (0.83-4.51); Absolute Neutrophil Count 4.5 X10^3/uL (2.0-7.7); Basophil# 0.01 X10^3/uL; Basophil% 0.2 % (0-1); Eosinophil# 0.02 X10^3/uL; Eosinophils% 0.3 % (0-5); Hematocrit 29.9 % (40-54); Hemoglobin 9.3 g/dL (13.0-16.5); Lymphocyte # 1.26 X10^3/ul (0.83-4.51); Lymphocyte % 20.3 % (19-41); Mean Corp Hgb Conc 31.1 g/dL (32-36); Mean Corpuscular Hgb 25.5 pg (27.0-32.0); Mean Corpuscular Volume 81.9 fL (80-94); Mean Platelet Vol. 8.2 fl (6.2-12.0); Monocyte# 0.33 X10^3/uL; Monocyte% 5.3 % (0-10); NRBC Flagged by Analyzer 0 % (0-5); Neutrophil # 4.53 X10^3/uL (2.7-7.7); Neutrophil % 72.9 % (47-70); Platelet Count 250 K/mm3 (150-450); RBC Distribution Width CV 16.4 % (11.6-14.6); RBC Distribution Width SD 48.8 fl (35.1-43.9); Red Blood Count 3.65 M/mm3 (4.6-6.2); White Blood Count 6.2 K/mm3 (4.4-11.0)
== END 2023-02-15 14:44 | disposition home or self-care (01) ==
LOC: MEDOUTP 14:43
PROVIDERS: PCP Internal Medicine; Referring Provider Internal Medicine Infectious Disease; Visit Provider Internal Medicine Infectious Disease
DX: A53.9 Syphilis, unspecified (principal)
CPT/HCPCS: 36415; 80048; 85025; 96523; A4216

== ENCOUNTER 2023-02-19 12:41 | Outpatient (CLI) | payer MEDICARE, SELFPAY ==
[2023-02-19 13:03] VITALS: BP 125/72; PULSE 103; RESP 16; TEMP 36.5; O2SAT 96; BMI 22.8
[2023-02-19] MEDS: Penicillin G Benzathine 2.4 MU/4 ML Syringe IM (13:06)
[2023-02-19 13:47] VITALS: BP 107/61; PULSE 91; RESP 16; O2SAT 98
== END 2023-02-19 12:42 | disposition home or self-care (01) ==
LOC: MEDOUTP 12:41
PROVIDERS: PCP Internal Medicine; Referring Provider Internal Medicine Infectious Disease; Visit Provider Internal Medicine Infectious Disease
DX: A52.71 Late syphilitic oculopathy (principal)
CPT/HCPCS: 96372